=== PATIENT | female | born 1990 | race Caucasian/White ===

== ENCOUNTER 2017-02-15 20:36 | Emergency (ER) | payer MEDICAID, OTHER ==
[~2017-02-15] VITALS: Ht 165.1 cm; Wt 123.0 kg
[~2017-02-15 20:36] MED LIST: ALBUTEROL (0.5%) 2.5MG/0.5ML NEB HHN ONE; IPRATROPIUM BROMIDE (0.02%) 0.5MG/2.5ML NEB ONE
[2017-02-15] MEDS ORDERED: PNV1TABL76 MT (22:16)
[2017-02-16] MEDS ORDERED: IPRATROPIUM/ALBUTEROL 0.5-3(2.5)MG/3ML NEB HHN SCH (02:15)
[2017-02-16 02:26] VITALS: BP 131/79
== END 2017-02-16 02:27 | disposition home or self-care (01) ==
LOC: ER 21:28 → L&D 21:39 → UNDOADMOB 21:39 → UNDODISOB 22:30 → ER 02-16 02:27
DX: O99.512 Diseases of the respiratory system complicating pregnancy, second trimester (principal); R06.2 Wheezing; R06.02 Shortness of breath; R05 Cough; Z3A.22 22 weeks gestation of pregnancy
CPT/HCPCS: 94640; 99283; J7611; G0378

== ENCOUNTER 2017-06-13 04:58 | Observation (INO) | payer MEDICAID ==
[~2017-06-13] VITALS: Ht 165.1 cm; Wt 136.1 kg
[~2017-06-13 04:58] MED LIST changes: -ALBUTEROL (0.5%) 2.5MG/0.5ML NEB HHN ONE; -IPRATROPIUM BROMIDE (0.02%) 0.5MG/2.5ML NEB ONE; +PNV1TABL76 MT
== END 2017-06-13 07:16 | disposition home or self-care (01) ==
LOC: EDBD 04:58 → L&D 04:58
PROVIDERS: ADMIT Obstetrics & Gynecology; ATTEND Obstetrics & Gynecology
DX: O46.93 Antepartum hemorrhage, unspecified, third trimester (principal); O36.8130 Decreased fetal movements, third trimester, not applicable or unspecified; Z3A.38 38 weeks gestation of pregnancy
CPT/HCPCS: 76805; 76818; 99281; G0378

== ENCOUNTER 2017-06-19 04:20 | Inpatient (IN) | payer MEDICAID ==
[~2017-06-19] VITALS: Ht 165.1 cm; Wt 139.7 kg
[2017-06-19] MEDS ORDERED: LACTATED RINGERS 1,000 ML IV SCH (04:55)
[2017-06-19] MEDS ORDERED: METHYLERGONOVINE MALEATE 0.2 MG/ML IM PRN ×2 (05:00→22:30)
[2017-06-19] MEDS ORDERED: CARBOPROST TROMETHAMINE 250 MCG/ML AMPUL IM PRN (05:00)
[2017-06-19] MEDS ORDERED: LIDOCAINE HCL/PF 1% 10 MG/ML 5ML VIAL IJ SCH (05:00)
[2017-06-19] MEDS ORDERED: MISOPROSTOL 100MCG TABLET VG SCH (05:00)
[2017-06-19] MEDS ORDERED: BUTORPHANOL TARTRATE 2 MG/ML VIAL IV PRN (05:00)
[2017-06-19] MEDS ORDERED: NALOXONE HCL 0.4 MG/ML 1ML VIAL IM PRN (05:00)
[2017-06-19 06:03] LABS: BASOPHILS % 0.3 % (0.0-2.0); EOSINOPHILS % 1.1 % (0.0-5.0); HEMATOCRIT. 31.8 % (36.0-48.0); LYMPHOCYTES % 15.5 % (20.0-50.0); MEAN CORPUSCULAR HEMOGLOBIN 28.5 pg (28.0-32.0); MEAN PLATELET VOLUME 9.1 fl (7.4-10.4); MONOCYTES % 4.9 % (2.0-8.0); NEUTROPHILS % 78.2 % (40.0-76.0); PLATELET 199 x1000/uL (130-400); RED BLOOD CELL COUNT 3.88 mill/uL (4.2-5.4); RED CELL DISTRIBUTION WIDTH 13.7 % (11.6-14.6)
[2017-06-19 06:05] LABS: CLARITY URINE CLOUDY (CLEAR); COLOR URINE YELLOW (YELLOW); KETONES URINE NEGATIVE (NEGATIVE); LEUKOCYTE ESTERASE URINE 3+ (NEGATIVE); NITRITE URINE NEGATIVE (NEGATIVE); OCCULT BLOOD URINE 3+ (NEGATIVE); PH URINE 6.5 (4.5-8.0); PROTEIN URINE NEGATIVE (NEGATIVE); SPECIFIC GRAVITY URINE 1.011 (1.005-1.030); UROBILINOGEN URINE 0.2 E.U./dL (0.2-1.0)
[2017-06-19 06:11] LABS: PARTIAL THROMBOPLASTIN TIME 28.9 sec (23.4-31.0); PROTHROMBIN TIME 9.9 sec (9.4-11.6)
[2017-06-19] MEDS: LACTATED RINGERS 1,000 ML IV SCH ×2 (07:14→12:15)
[2017-06-19 07:23] LABS: *AMPHETAMINES SCREEN URINE NEGATIVE (NEGATIVE); METHADONE URINE SCREEN NEGATIVE (NEGATIVE); OPIATES URINE SCREEN NEGATIVE (NEGATIVE)
[2017-06-19 07:24] LABS: *COCAINE SCREEN URINE NEGATIVE (NEGATIVE); CANNABINOID URINE SCREEN NEGATIVE (NEGATIVE)
[2017-06-19 07:25] LABS: *BARBITURATES SCREEN URINE NEGATIVE (NEGATIVE); *BENZODIAZEPINES SCREEN URINE NEGATIVE (NEGATIVE)
[2017-06-19 07:26] LABS: PHENCYCLIDINE URINE SCREEN NEGATIVE (NEGATIVE)
[2017-06-19] MEDS ORDERED: BUPIVACAINE HCL/NS/PF EPIDURAL 100 ML EP ONE ×2 (07:34→16:05)
[2017-06-19] MEDS ORDERED: BUPIVACAINE HCL/PF 0.25% (2.5MG/ML) 10ML ONE (07:34)
[2017-06-19] MEDS ORDERED: FENTANYL CITRATE/PF 50MCG/ML 5ML VIAL ONE (07:34)
[2017-06-19] MEDS ORDERED: BUPIVACAINE HCL/NS/PF EPIDURAL 100 ML EP SCH (08:15)
[2017-06-19] MEDS: DEXT 5%/LR + PITOCIN 20UNITS/L 1,000 ML IV SCH ×2 (08:58→18:33)
[2017-06-19 11:30] LABS: HEPATITIS B SURFACE ANTIGEN NEGATIVE; RUBELLA IGG 13.5 IU/mL (4.99-10)
[2017-06-19] MEDS ORDERED: FENTANYL CITRATE/PF 50MCG/ML 2ML VIAL ONE (16:06)
[2017-06-19 21:35] VITALS: BP 105/57
[2017-06-19 22:10] VITALS: BP 113/63
[2017-06-19] MEDS ORDERED: IBUPROFEN 400MG TABLET PO PRN (22:15)
[2017-06-19] MEDS ORDERED: IBUPROFEN 800MG TABLET PO PRN (22:15)
[2017-06-19] MEDS ORDERED: ACETAMINOPHEN WITH CODEINE 300/30MG TABLET PO PRN (22:15)
[2017-06-19 22:45] VITALS: BP 137/71
[2017-06-20 01:46] VITALS: BP 105/52
[2017-06-20 06:28] LABS: BASOPHILS % 0.2 % (0.0-2.0); EOSINOPHILS % 0.5 % (0.0-5.0); HEMATOCRIT. 27.4 % (36.0-48.0); HEMOGLOBIN. 9.4 g/dL (12.0-16.0); LYMPHOCYTES % 11.8 % (20.0-50.0); MEAN CORPUSCULAR HEMOGLOBIN 28.2 pg (28.0-32.0); MEAN CORPUSCULAR VOLUME 82.3 fL (81.0-99.0); MONOCYTES % 4.6 % (2.0-8.0); NEUTROPHILS % 82.9 % (40.0-76.0); PLATELET 182 x1000/uL (130-400); RED BLOOD CELL COUNT 3.33 mill/uL (4.2-5.4); RED CELL DISTRIBUTION WIDTH 13.8 % (11.6-14.6)
[2017-06-20 09:26] VITALS: BP 123/76
[2017-06-20 15:03] VITALS: BP 110/53
[2017-06-20 19:55] VITALS: BP 104/53
[2017-06-20] MEDS: DOCUSATE SODIUM 100MG CAPSULE PO SCH (21:49)
[2017-06-21 08:00] VITALS: BP 116/71
[2017-06-21] MEDS: DOCUSATE SODIUM 100MG CAPSULE PO SCH (08:35)
== END 2017-06-21 10:20 | disposition home or self-care (01) | DRG 560 ==
LOC: L&D 04:20 → OBSVTOIN 04:20 → 7EST PP/OB 21:22
PROVIDERS: ADMIT Obstetrics & Gynecology; ATTEND Obstetrics & Gynecology
PROC: 3E0R3BZ Introduction of Anesthetic Agent into Spinal Canal, Percutaneous Approach (ICD-10-PCS; 2017-06-19)
PROC: 00HU33Z Insertion of Infusion Device into Spinal Canal, Percutaneous Approach (ICD-10-PCS; 2017-06-19)
PROC: 10E0XZZ Delivery of Products of Conception, External Approach (ICD-10-PCS; principal; 2017-06-19 18:21)
DX: O77.0 Labor and delivery complicated by meconium in amniotic fluid (principal); Z68.43 Body mass index [BMI] 50.0-59.9, adult; E66.9 Obesity, unspecified; O99.02 Anemia complicating childbirth; O99.214 Obesity complicating childbirth; D64.9 Anemia, unspecified; Z82.3 Family history of stroke; Z82.49 Family history of ischemic heart disease and other diseases of the circulatory system; Z37.0 Single live birth; Z82.5 Family history of asthma and other chronic lower respiratory diseases; Z3A.39 39 weeks gestation of pregnancy
CPT/HCPCS: 36415; 80305; 81003; 85025; 85610; 85730; 86592; 86703; 86762; 86850; 86900; 87340; J2210; J2310; J2590; J3010; J3490; J7120